=== PATIENT | female | born 1955 | race Caucasian/White ===

== ENCOUNTER 2016-09-02 13:20 | Outpatient (CLI) | payer MEDICARE, OTHER ==
--- NOTE | 2016-09-02 20:56 | RAD ---
LEFT SHOULDER THREE VIEWS: Date: 09-02-16 FINDINGS: No fracture, dislocation, or AC joint widening was seen. There are no periarticular calcifications. The adjacent lung is clear. IMPRESSION: No acute findings. POS: HOME
== END 2016-09-02 13:21 | disposition home or self-care (01) ==
LOC: BURRAD 13:20
PROVIDERS: ATTEND Family Medicine
DX: M25.512 Pain in left shoulder (principal)

== ENCOUNTER 2016-10-05 11:17 | Emergency (ER) | payer MEDICARE, OTHER | END 2016-10-05 12:00 | disposition home or self-care (01) | LOC: BURERS 11:17 | DX: S00.261A Insect bite (nonvenomous) of right eyelid and periocular area, initial encounter (principal); L29.9 Pruritus, unspecified; E03.9 Hypothyroidism, unspecified; K21.9 Gastro-esophageal reflux disease without esophagitis; E78.5 Hyperlipidemia, unspecified | CPT/HCPCS: 99283 ==

== ENCOUNTER 2016-10-28 07:57 | Outpatient (CLI) | payer MEDICARE, OTHER ==
--- NOTE | 2016-10-29 07:27 | MRI ---
MRI CERVICAL SPINE WITHOUT IV CONTRAST: DATE: 10/28/16. HISTORY: Cervical radiculopathy. FINDINGS: The base of the brain demonstrates a normal MRI appearance aside from mild volume loss. There is mild nonspecific heterogeneity of the bone marrow. There is a subcentimeter rounded focus of increased T1 and T2 weighted signal intensity seen in the C6 vertebral body which may represent a small hemangioma. Additional findings are seen in the inferior end plate of the T2 vertebral body. There are minimal broad-based disk bulges at the C3-4, C4-5, C5-6, and C6-7 levels with the largest disk bulge at the C4-5 level with associated posterior osteophyte formation. There is only mild marianna ateral neural foraminal narrowing present. There is only minimal effacement of the ventral subarach noid spaces at the levels of disk bulge, greatest at the C4-5 level. However, the spinal cord is no rmal in contour and signal intensity. IMPRESSION: Mild degenerative disk changes without significant central canal or neural foraminal narrowing. POS: [facility]
== END 2016-10-28 07:58 | disposition home or self-care (01) ==
LOC: BURMRI 07:57
PROVIDERS: ATTEND Family Medicine
DX: M54.12 Radiculopathy, cervical region (principal); M50.223 Other cervical disc displacement at C6-C7 level
CPT/HCPCS: 72141

== ENCOUNTER 2016-12-31 14:15 | Outpatient (CLI) | payer MEDICARE, OTHER | END 2016-12-31 14:16 | disposition home or self-care (01) | LOC: HPCALD 14:15 | PROVIDERS: ATTEND Family Medicine | DX: N39.0 Urinary tract infection, site not specified (principal) | CPT/HCPCS: 87077; 87086; 87186 ==

== ENCOUNTER 2017-01-07 19:13 | Emergency (ER) | payer MEDICARE, OTHER ==
[2017-01-07] MEDS ORDERED: Ibuprofen 800 MG TAB ONE (19:53)
--- NOTE | 2017-01-07 20:43 | RAD ---
THREE VIEW LEFT SHOULDER 01/07/17 CLINICAL HISTORY: Left shoulder pain. FINDINGS: Mild osteoarthritis without fracture or dislocation. No significant interval change from 09/02/16 comparison exam. IMPRESSION: No acute fracture of left shoulder. POS: [facility]
== END 2017-01-07 20:00 | disposition home or self-care (01) ==
LOC: BURERS 19:13
DX: S46.912A Strain of unspecified muscle, fascia and tendon at shoulder and upper arm level, left arm, initial encounter (principal); E03.9 Hypothyroidism, unspecified; K21.9 Gastro-esophageal reflux disease without esophagitis; E78.5 Hyperlipidemia, unspecified; I10 Essential (primary) hypertension; F98.8 Other specified behavioral and emotional disorders with onset usually occurring in childhood and adolescence; F32.9 Major depressive disorder, single episode, unspecified; X50.9XXA Other and unspecified overexertion or strenuous movements or postures, initial encounter

== ENCOUNTER 2019-08-18 15:16 | Outpatient (CLI) | payer MEDICARE ==
--- NOTE | 2019-08-18 19:42 | RAD ---
RIGHT KNEE TWO VIEWS: 08/18/19 No prior film was available for comparison. A right knee arthroplasty is in place. There is no sign o f gross loosening or the appliances. There is a joint effusion, however. No acute fracture was seen. IMPRESSION: Joint effusion. POS: HOME
== END 2019-08-18 15:17 | disposition home or self-care (01) ==
LOC: BURRAD 15:16
PROVIDERS: ATTEND Physician Assistant
DX: S83.91XA Sprain of unspecified site of right knee, initial encounter (principal); M25.461 Effusion, right knee

== ENCOUNTER 2019-11-25 21:04 | Emergency (ER) | payer MEDICARE | END 2019-11-25 22:20 | disposition home or self-care (01) | LOC: BURERS 21:04 | DX: B82.0 Intestinal helminthiasis, unspecified (principal); E03.9 Hypothyroidism, unspecified; E78.5 Hyperlipidemia, unspecified; I10 Essential (primary) hypertension; F98.8 Other specified behavioral and emotional disorders with onset usually occurring in childhood and adolescence; F32.9 Major depressive disorder, single episode, unspecified; K21.9 Gastro-esophageal reflux disease without esophagitis; Z79.899 Other long term (current) drug therapy | CPT/HCPCS: 99282 ==

== ENCOUNTER 2021-06-14 15:52 | Outpatient (CLI) | payer MEDICARE | END 2021-06-14 15:53 | disposition home or self-care (01) | LOC: BURRAD 15:52 | PROVIDERS: ATTEND Family Medicine | DX: M25.511 Pain in right shoulder (principal) ==

== ENCOUNTER 2023-02-19 17:19 | Outpatient (CLI) | payer OTHER ==
[2023-02-19 18:02] LABS: Mean Corpuscular Hemoglobin 27.1 pg (27.0-31.0); Mean Corpuscular Volume 87.3 fl (78.0-98.0); Mean Platelet Volume 5.8 fL (7.4-10.4); Platelet Count 267 10x3/uL (130-400); RBC Distribution Width 15.8 % (11.5-14.5); Red Blood Cell (RBC) Count 3.68 mill/uL (4.20-5.40); White Blood Cell (WBC) Count 6.8 10x3/uL (4.8-10.8)
[2023-02-19 18:11] LABS: Bilirubin Negative (Negative); Blood, Urine Negative (Negative); Clarity Clear (Clear); Glucose, Urine (Dipstick) Negative (Negative); Ketone, Urine Negative (Negative); Leukocyte Negative (Negative); Nitrite Negative (Negative); Protein, Urine (Dipstick) Negative (Neg-Trace); pH, Urine 6.5 (5.0-9.0)
[2023-02-19 18:32] LABS: Albumin 3.7 g/dL (3.4-4.8); Anion Gap 14 mmol/L (10-20); BUN (Urea Nitrogen) 20 mg/dL (9.8-20.1); Calc. Creatinine Clearance 0 mL/min (70-130); Calcium 8.8 mg/dL (7.8-10.44); Carbon Dioxide 22 mmol/L (23-31); Chloride 109 mmol/L (98-107); Estimated GFR 39; Glucose 106 mg/dL (80-115); Magnesium 2.1 mg/dL (1.6-2.6); Potassium 3.8 mmol/L (3.5-5.1); Sodium 141 mmol/L (136-145)
[2023-02-19 22:28] LABS: Creatinine, Urine 90.58 mg/dL (47-110); Protein, Urine Random Quant Less than 10 mg/dL (1-14)
[2023-02-19 22:36] LABS: Phosphorus 4.1 mg/dL (2.3-4.7)
== END 2023-02-19 17:20 | disposition home or self-care (01) ==
LOC: BURRAD 17:19
PROVIDERS: ATTEND Family Medicine
DX: M79.601 Pain in right arm (principal); I12.9 Hypertensive chronic kidney disease with stage 1 through stage 4 chronic kidney disease, or unspecified chronic kidney disease; N18.30 Chronic kidney disease, stage 3 unspecified; E55.9 Vitamin D deficiency, unspecified; R60.9 Edema, unspecified
CPT/HCPCS: 36415; 80048; 81003; 82040; 82570; 83735; 83970; 84100; 84156; 85027